=== PATIENT | female | born 2005 | race Caucasian/White ===

== ENCOUNTER 2025-03-03 12:41 | Emergency (ER) | payer OTHER ==
[~2025-03-03] VITALS: Ht 157.5 cm; Wt 54.9 kg
[2025-03-03 15:03] VITALS: BP 120/86; TEMP 98.3; O2SAT 100
== END 2025-03-03 15:04 | disposition home or self-care (01) ==
LOC: ER 12:45
DX: O26.91 Pregnancy related conditions, unspecified, first trimester (principal); M54.2 Cervicalgia; M54.50 Low back pain, unspecified; V89.2XXA Person injured in unspecified motor-vehicle accident, traffic, initial encounter; Y93.89 Activity, other specified; Y92.415 Exit ramp or entrance ramp of street or highway as the place of occurrence of the external cause; Y99.8 Other external cause status
CPT/HCPCS: 72050-TC; 72074-TC